=== PATIENT | male | born 1970 | race African-American/Black ===

== ENCOUNTER 2019-06-18 12:47 | Inpatient (IN) ==
[2019-06-18] MEDS ORDERED: SODIUM CHLORIDE 0.9% 2,000 ML IV STA (13:08)
[2019-06-18] MEDS ORDERED: ONDANSETRON 4 MG/2 ML VIAL IV STA (13:08)
[2019-06-18 13:27] LABS: Basophils % 0.4 % (0.0-0.8); Hematocrit 53.4 VOL% (42.0-52.0); Hemoglobin 17.3 GM/DL (14.0-18.0); Immature Granulocytes % 1.2 %; Immature Granulocytes Absolute 0.12 #; Lymphocytes % 9.8 % (21.2-54.2); Mean Corpuscular HGB Conc 32.4 GM/DL (32-36); Mean Corpuscular Volume 94.8 FL (87-102); Monocytes % 5.4 % (1.7-12.7); NRBC # 0.02 10*3/uL; Neutrophils % 83.2 % (38.7-73.9); Platelet Count 271 T/CUMM (130-400); Red Blood Count 5.63 MC/CUMM (3.8-5.5); Red Cell Distribution Width 11.2 % (9.3-17.3); White Blood Count 10.4 T/CUMM (4-12)
[2019-06-18] MEDS ORDERED: INSULIN REGULAR 100 UNIT/ML IV STA (13:32)
[2019-06-18] MEDS ORDERED: INSULIN REGULAR 100 UNIT/ML ONE (13:32)
[2019-06-18 13:59] LABS: Alanine Aminotransferase 93 U/L (16-61); Alkaline Phosphatase 141 U/L (45-117); Aspartate Amino Transferase 49 U/L (0-37); Blood Urea Nitrogen 42 MG/DL (7-18); Calcium 9.3 MG/DL (8.5-10.1); Estimated Glom Filtration Rate 46 ML/MIN; Osmolality,Calculated 287.4 MOS/KG (273-304); Total Protein 9.1 G/DL (6.4-8.3)
[2019-06-18 14:05] LABS: Glucose 539 MG/DL (74-106)
[2019-06-18 14:06] LABS: Ferritin 366.3 ng/ml (26-388)
[2019-06-18 14:17] LABS: Apearance,Urine CLEAR (Clear); Bilirubin,Urine Negative (Negative); Blood, Urine Small mg/dL (Negative); Glucose,Urine (UA) >=500 mg/dL (Negative); Ketones,Urine 80 mg/dL (Negative); Mucus,Urine Occasional /LPF (Occasional); Nitrite,Urine Negative (Negative); Protein,Urine 30 MG/DL; RBC,Urine 2 /HPF (0-4); Squamous Epithelial Cell,Urine Occasional /HPF (0-10); Urine Color Yellow (Yellow); Urine Specific Gravity 1.022 (1.001-1.035); Urine Urobilinogen < 2.0 EU/DL (0.2-1.0); WBC,Urine <1 /HPF (0-6)
[2019-06-18] MEDS ORDERED: POTASSIUM CHLORIDE RIDER 10 MEQ in PREMIX 1 EACH IV PRN (15:27)
[2019-06-18] MEDS ORDERED: MAGNESIUM SULF RIDER 4 GM in PREMIX 1 EACH IV PRN (15:27)
[2019-06-18] MEDS ORDERED: SODIUM PHOSPHATE INJ 19.8 MMOL in SODIUM CHLORIDE 0.9% 250 ML IV PRN (15:27)
[2019-06-18] MEDS ORDERED: SODIUM BICARB INJ 100 MEQ in STERILE WATER INJ 400 ML IV PRN (15:27)
[2019-06-18] MEDS ORDERED: ACETAMINOPHEN 325 MG TABLET PO PRN (15:27)
[2019-06-18] MEDS ORDERED: DEXTROSE 50% 25 GM/50 ML VIAL IV PRN ×3 (15:27)
[2019-06-18] MEDS ORDERED: GLUCAGON 1 MG VIAL IM PRN (15:27)
[2019-06-18] MEDS ORDERED: MAGNESIUM SULF RIDER 2 GM in PREMIX 1 EACH IV PRN (15:27)
[2019-06-18] MEDS ORDERED: ENOXAPARIN 40 MG/0.4 ML SYRINGE SUBCUT SCH (15:30)
[2019-06-18] MEDS: SODIUM CHLORIDE 0.9% 1,000 ML IV SCH ×2 (16:40→19:04)
[2019-06-18] MEDS: INSULIN REGULAR DRIP 100 ML IV SCH (17:00)
[2019-06-18] MEDS: ONDANSETRON 4 MG/2 ML VIAL IV PRN ×2 (17:07→21:26)
[2019-06-18 17:50] LABS: Apearance,Urine CLEAR (Clear); Bilirubin,Urine Negative (Negative); Blood, Urine Small mg/dL (Negative); Glucose,Urine (UA) >=500 mg/dL (Negative); Ketones,Urine 80 mg/dL (Negative); Mucus,Urine Occasional /LPF (Occasional); Nitrite,Urine Negative (Negative); Protein,Urine Negative; RBC,Urine 1 /HPF (0-4); Urine Color Straw (Yellow); Urine Specific Gravity 1.017 (1.001-1.035); Urine Urobilinogen < 2.0 EU/DL (0.2-1.0)
[2019-06-18] MEDS ORDERED: INSULIN REGULAR 100 UNIT/ML IV ONE (18:21)
[2019-06-18 20:04] LABS: Calcium 8.5 MG/DL (8.5-10.1); Osmolality,Calculated 281.7 MOS/KG (273-304)
[2019-06-18] MEDS ORDERED: SODIUM CHLORIDE 0.9% 1,000 ML IV SCH ×2 (20:28→22:00)
[2019-06-18] MEDS: DOCUSATE SODIUM 100 MG CAPSULE PO SCH (21:25)
[2019-06-19 00:04] LABS: Calcium 7.8 MG/DL (8.5-10.1); Osmolality,Calculated 279.8 MOS/KG (273-304)
[2019-06-19] MEDS ORDERED: DEXTROSE 5% NACL 0.9% 1,000 ML IV SCH (04:30)
[2019-06-19 04:47] LABS: Basophils % 0.1 % (0.0-0.8); Hematocrit 41.6 VOL% (42.0-52.0); Hemoglobin 14.1 GM/DL (14.0-18.0); Immature Granulocytes % 1.1 %; Lymphocytes % 22.5 % (21.2-54.2); Mean Corpuscular HGB Conc 33.9 GM/DL (32-36); Mean Platelet Volume 10.7 FL (9.6-12.0); Monocytes % 7.9 % (1.7-12.7); Neutrophils % 68.4 % (38.7-73.9); Platelet Count 243 T/CUMM (130-400); Red Blood Count 4.62 MC/CUMM (3.8-5.5); Red Cell Distribution Width 11.2 % (9.3-17.3); White Blood Count 8.9 T/CUMM (4-12)
[2019-06-19 05:16] LABS: Calcium 8.3 MG/DL (8.5-10.1); Osmolality,Calculated 276.2 MOS/KG (273-304)
[2019-06-19] MEDS: INSULIN REGULAR DRIP 100 ML IV SCH (06:25)
[2019-06-19] MEDS ORDERED: DEXT 5% NACL 0.9% KCL 20 MEQ 20 MEQ/1,000 ML BAG IV SCH (06:30)
[2019-06-19 08:06] LABS: Calcium 8.2 MG/DL (8.5-10.1)
[2019-06-19] MEDS: DOCUSATE SODIUM 100 MG CAPSULE PO SCH (10:28)
[2019-06-19] MEDS: PANTOPRAZOLE 40 MG TABLET PO SCH (10:40)
[2019-06-19] MEDS: SODIUM CHLORIDE 0.45% 1,000 ML IV SCH ×3 (10:41→20:50)
[2019-06-19] MEDS: INSULIN LISPRO 100 UNIT/ML SUBCUT SCH ×3 (10:42→20:50)
[2019-06-19] MEDS: SUCRALFATE 1 GM/10 ML UDCUP PO SCH ×3 (12:50→20:50)
[2019-06-19] MEDS ORDERED: DOCUSATE SODIUM 100 MG CAPSULE PO PRN (12:51)
[2019-06-19] MEDS: ENOXAPARIN 40 MG/0.4 ML SYRINGE SUBCUT SCH (16:44)
[2019-06-19] MEDS ORDERED: INSULIN GLARGINE 100 UNIT/ML SUBCUT SCH (21:00)
[2019-06-20 04:39] LABS: Basophils % 0.2 % (0.0-0.8); Eosinophils % 0.2 % (0.00-10.9); Hematocrit 35.4 VOL% (42.0-52.0); Hemoglobin 12.4 GM/DL (14.0-18.0); Immature Granulocytes % 0.3 %; Immature Granulocytes Absolute 0.02 #; Lymphocytes # 1.2 10*3/uL (1.4-4.0); Lymphocytes % 19.3 % (21.2-54.2); Mean Platelet Volume 10.1 FL (9.6-12.0); Monocytes % 7.2 % (1.7-12.7); Neutrophils % 72.8 % (38.7-73.9); Platelet Count 222 T/CUMM (130-400); Red Blood Count 4.07 MC/CUMM (3.8-5.5); Red Cell Distribution Width 11.4 % (9.3-17.3)
[2019-06-20] MEDS: SODIUM CHLORIDE 0.45% 1,000 ML IV SCH ×2 (04:50→18:42)
[2019-06-20 05:31] LABS: Albumin 2.7 G/DL (3.4-5.0); Bilirubin,Total 1.4 MG/DL (0.2-1.0); Osmolality,Calculated 273.5 MOS/KG (273-304)
[2019-06-20] MEDS: PANTOPRAZOLE 40 MG TABLET PO SCH (08:17)
[2019-06-20] MEDS: SUCRALFATE 1 GM/10 ML UDCUP PO SCH ×4 (08:17→20:19)
[2019-06-20] MEDS: INSULIN LISPRO 100 UNIT/ML SUBCUT SCH ×4 (08:58→20:17)
[2019-06-20] MEDS ORDERED: SODIUM PHOSPHATE INJ 15 MMOL in SODIUM CHLORIDE 0.9% 250 ML IV ONE (09:30)
[2019-06-20] MEDS: glipiZIDE 10 MG TABLET PO SCH ×2 (09:56→20:20)
[2019-06-20] MEDS: metFORMIN 500 MG TABLET PO SCH ×2 (09:56→20:18)
[2019-06-20] MEDS ORDERED: INSULIN GLARGINE 100 UNIT/ML SUBCUT SCH (21:00)
[2019-06-20] MEDS: ENOXAPARIN 40 MG/0.4 ML SYRINGE SUBCUT SCH (21:48)
[2019-06-21 05:23] LABS: Basophils % 0.2 % (0.0-0.8); Eosinophils % 0.2 % (0.00-10.9); Hematocrit 35.1 VOL% (42.0-52.0); Hemoglobin 12.1 GM/DL (14.0-18.0); Immature Granulocytes % 0.9 %; Immature Granulocytes Absolute 0.04 #; Lymphocytes # 1.3 10*3/uL (1.4-4.0); Lymphocytes % 31.2 % (21.2-54.2); Mean Corpuscular HGB Conc 34.5 GM/DL (32-36); Mean Corpuscular Volume 88.2 FL (87-102); Mean Platelet Volume 10.7 FL (9.6-12.0); Monocytes % 11.3 % (1.7-12.7); Neutrophils % 56.2 % (38.7-73.9); Platelet Count 206 T/CUMM (130-400); Red Blood Count 3.98 MC/CUMM (3.8-5.5); Red Cell Distribution Width 11.1 % (9.3-17.3); White Blood Count 4.2 T/CUMM (4-12)
[2019-06-21] MEDS: SODIUM CHLORIDE 0.45% 1,000 ML IV SCH ×3 (05:29→13:32)
[2019-06-21 05:40] LABS: Albumin 2.7 G/DL (3.4-5.0); Bilirubin,Total 1.6 MG/DL (0.2-1.0); Calcium 8.2 MG/DL (8.5-10.1); Osmolality,Calculated 281.8 MOS/KG (273-304); Total Protein 6.1 G/DL (6.4-8.3)
[2019-06-21 05:44] LABS: Hypochromasia Slight; Microcytosis Slight; Platelet Estimate Normal
[2019-06-21] MEDS ORDERED: POTASSIUM CHLORIDE RIDER 10 MEQ in PREMIX 1 EACH IV SCH (08:30)
[2019-06-21] MEDS: glipiZIDE 10 MG TABLET PO SCH (08:58)
[2019-06-21] MEDS: PANTOPRAZOLE 40 MG TABLET PO SCH (08:58)
[2019-06-21] MEDS: metFORMIN 500 MG TABLET PO SCH (08:58)
[2019-06-21] MEDS: SUCRALFATE 1 GM/10 ML UDCUP PO SCH ×2 (08:58→13:02)
[2019-06-21] MEDS: INSULIN LISPRO 100 UNIT/ML SUBCUT SCH ×2 (08:58→13:05)
[2019-06-21] MEDS ORDERED: POTASSIUM CHLORIDE 10 MEQ TABLET PO SCH (09:00)
[2019-06-21] MEDS ORDERED: SODIUM CHLORIDE 0.9% IV ONE (09:30)
[2019-06-21] MEDS ORDERED: POTASSIUM CHLORIDE IV ONE (09:30)
[2019-06-21 13:31] VITALS: BP 121/81
== END 2019-06-21 15:06 | disposition home or self-care (01) | DRG 637 ==
LOC: N.ED 12:47 → N.ICU 14:25 → N.EDINP 15:27 → N.ICU 16:02 → N.2W 06-19 16:18
PROVIDERS: ADMIT Family Medicine; ATTEND Family Medicine